=== PATIENT | male | born 1960 | race Caucasian/White ===

== ENCOUNTER 2018-11-03 15:02 | Inpatient (IN) | payer BC ==
[~2018-11-03] VITALS: Ht 170.2 cm; Wt 88.1 kg
[2018-11-03 15:25] VITALS: BP 131/96
--- NOTE | 2018-11-03 15:29 | NUR ---
VSS, AMBULATED TO LOBBY
--- NOTE | 2018-11-03 18:26 | NUR ---
patient ambulated to bed #7
--- NOTE | 2018-11-03 18:30 | NUR ---
PATIENT PRESENTS TO THE ED WITH C/O ELEVATED BLOOD PRESSURE. PER PATIENT HE WAS SEEN AT A CLINIC LAST SUNDAY AND HIS SYSTOLIC BP WAS IN THE 200's. PATIENT STATES THAT HE FELT DIZZY AND VOMITED. PATIENT REPORTS THAT HE WAS GIVEN BENICAR, ASPIRIN, ZOFRAN AND OMEPRAZOLE ON HIS VISIT TO THE CLINIC ON SUNDAY. PT DENIES TAKING MEDICATIONS AT HOME. NO C/O PAIN AT THIS TIME. BP 136/86 AT HIS TIME. NO S/S OF DISTRESS. PATIENT ON MONITORING. BED LOWERED WITH SIDE RAILS UP. WILL CONTINUE TO MONITOR
--- NOTE | 2018-11-03 19:13 | NUR ---
ASSUMED CARE OF PT FROM ANÍBAL VINSON
--- NOTE | 2018-11-03 19:20 | NUR ---
DR. CARCAMO IN THE UNIT. UPDATED BY AM NURSE REGARDING PT. CONDITION. NO ORDERS MADE AT THIS TIME. Addendum: 11/04/18 at 0415 by Sari Ríos RN WRONG PATIENT
[2018-11-03] MEDS ORDERED: DILTIAZEM 25 MG/5 ML VIAL IVP ONE ×3 (20:20→21:08)
[2018-11-03 20:30] LABS: BASOPHILS # (AUTO) 0.1 K/uL (0.00-0.22); BASOPHILS % (AUTO) 0.6 % (0.0-2.0); EOSINOPHILS # (AUTO) 0.1 K/uL (0-0.4); EOSINOPHILS % (AUTO) 1.2 % (0.0-4.0); HEMOGLOBIN 15.2 g/dL (12.0-18.0); LYMPHOCYTES # (AUTO) 3.3 K/uL (2.0-11.5); LYMPHOCYTES % (AUTO) 36.5 % (20.5-51.1); MEAN CORPUSCULAR HEMOGLOBIN 30 pg (27-31); MEAN CORPUSCULAR HGB CONC 32 g/dL (33-37); MEAN CORPUSCULAR VOLUME 92.3 fL (80-94); MONOCYTES # (AUTO) 0.8 K/uL (0.8-1.0); MONOCYTES % (AUTO) 9.2 % (1.7-9.3); NEUTROPHILS # (AUTO) 4.8 K/uL (1.8-7.7); NEUTROPHILS % (AUTO) 52.5 % (42.2-75.2); PLATELET COUNT (AUTO) 209 K/uL (140-450); RED BLOOD CELL COUNT(AUTO) 5.09 MIL/uL (4.20-6.10); RED CELL DISTRIBUTION WIDTH 13.4 % (11.6-13.7); WHITE BLOOD COUNT (AUTO) 9.1 K/uL (4.8-10.8)
[2018-11-03 20:41] LABS: ANION GAP 8.8 (8-16); CARBON DIOXIDE 33.8 mmol/L (21-32); CREATININE 0.9 mg/dL (0.7-1.3); POTASSIUM 3.6 mmol/L (3.5-5.1)
[2018-11-03 20:50] LABS: ALBUMIN 3.9 g/dL (3.4-5.0); TOTAL BILIRUBIN 0.5 mg/dL (0.0-1.0)
[2018-11-03] MEDS ORDERED: DILTIAZEM 125 MG in DEXTROSE 5% 100 ML IV ONE (20:50)
[2018-11-03] MEDS ORDERED: DILTIAZEM 125 MG/25 ML VIAL IV ONE (21:00)
[2018-11-03] MEDS ORDERED: ACETAMINOPHEN 325 MG TAB PO PRN (21:15)
[2018-11-03] MEDS ORDERED: LORazepam 2 MG/ML VIAL IM/IVP PRN (21:15)
[2018-11-03] MEDS ORDERED: ZOLPIDEM 5 MG TAB PO PRN (21:15)
[2018-11-03] MEDS ORDERED: DOCUSATE SODIUM 100 MG GELCAP PO PRN (21:15)
[2018-11-03] MEDS ORDERED: ONDANSETRON 4 MG/2 ML VIAL IM/IVP PRN (21:15)
[2018-11-03] MEDS ORDERED: HYDROcodone/APAP 5/325 MG 1 TAB TAB PO PRN (21:15)
[2018-11-03] MEDS ORDERED: MORPHINE SULFATE 2 MG/ML SYR IVP PRN (21:15)
[2018-11-03] MEDS ORDERED: NACL 0.9% 1,000 ML IV ONE (21:20)
--- NOTE | 2018-11-03 21:20 | NUR ---
BP DECREASED TO 86/55. ER MD ALLEN NOTIFED. ORDER FOR 1L BOLUS RECIEVED. CARDIZEM GTT DECREASED TO 5MG/HR.
--- NOTE | 2018-11-03 21:30 | NUR ---
PT HR DECREASED TO MID 40S LOW 50S. ER MD FRANKLIN AWARE. RECIEVED ORDERS TO STOP CARDIZEM GTT.
[2018-11-03 21:38] LABS: PROTHROMBIN TIME 10.4 secs (10.8-13.4)
--- NOTE | 2018-11-03 21:40 | NUR ---
PT PLACED INTO [place] POSISTION TO INCREASE BP. CARDIZEM DRIP STOPPED. HR MOVING TO LOW 60S. BP AT 99/60.
[2018-11-03 21:46] LABS: MAGNESIUM 1.8 mg/dL (1.8-2.4); PHOSPHORUS 3.2 mg/dL (2.5-4.9); THYROID STIMULATING HORMONE 3.12 uIU/mL (0.34-3.74)
--- NOTE | 2018-11-03 22:00 | NUR ---
HR AND BP IMPROVING. ER MD AWARE. CURRENT BP: 108/65
--- NOTE | 2018-11-03 22:10 | NUR ---
Patient will be admitted to care of DR NORRIS. Admited to ICU. Will go to room ICU 05. Belongings list completed. Report to ANÍBAL DAILEY.
--- NOTE | 2018-11-03 22:12 | NUR ---
RECEIVED PATIENT FROM ER VIA GURNEY. AWAKE, ALERTED, ORIENTED X4. PT ABLE TO TRANSFER TO BED WITH MINIMAL ASSISTANCE. ATTACHED TO CRUSHER SCREEN REPAIRER AND PULSE OXIMETER. IV ACCESS AT RIGHT AC 20G SALINE LOCK, RIGHT HAND 22G, SALINE LOCK, PATENT, INTACT. AFIB ON MONITOR. PT CAN ARTICULATE WORDS PROPERLY, NO SLURRING OF SPEECH NOTED. PERRLA. ABLE TO MOVE ALL EXTREMITIES WITH NO LIMITATION. SKIN INTACT. ABLE TO VOID FREELY. PT FOLLOWS COMMANDS. CAN VERBALIZED NEEDS. BED IN LOW POSITION, SAFETY MEASURE ENSURE. BED ALARM WITHIN REACH. WILL CONTINUE TO MONITOR.
[2018-11-03 22:19] VITALS: BP 168/93
[2018-11-03] MEDS: NACL 0.9% 1,000 ML IV SCH (22:43)
--- NOTE | 2018-11-03 23:00 | NUR ---
DR. JOLEEN MUNOZ AT BEDSIDE TALKING TO THE PATIENT AND THE .
--- NOTE | 2018-11-03 23:30 | NUR ---
VOIDED FREELY, URINE SPECIMEN SENT TO LAB,MRSA SPECIMEN SENT TO LAB. MITCHEL GUERRA PROVIDED SANDWICH.
[2018-11-03 23:57] LABS: APPEARANCE,URINE CLEAR (CLEAR); BILIRUBIN,URINE NEGATIVE (NEGATIVE); BLOOD, URINE TRACE-L (NEGATIVE); COLOR,URINE YELLOW (YELLOW); LEUKOCYTE ESTERASE ,URINE NEGATIVE (NEGATIVE); NITRITE, URINE NEGATIVE (NEGATIVE); UGLUCOSE NEGATIVE (NEGATIVE)
[2018-11-04] VITALS (12 sets, daily range): BP systolic 90–130; BP diastolic 34–75
--- NOTE | 2018-11-04 | NUR ---
SCDS IN PLACE.
[2018-11-04 00:04] LABS: BARBITURATE, URINE NEG. ng/ml (NEG <=200); BENZODIAZEPINE, URINE NEG. ng/mL (NEG <=200); CANNABINOID, URINE NEG. ng/mL (NEG <=50); COCAINE, URINE NEG. ng/mL (NEG <=300); OPIATE, URINE NEG. ng/mL (NEG <=2000); PHENCYCLIDINE SCREEN,URINE NEG. ng/mL (NEG <=25)
[2018-11-04 00:09] LABS: RBC,URINE 0-5 /HPF (0-5); WBC,URINE 0-5 /HPF (0-5)
[2018-11-04] MEDS ORDERED: OMEP20TC12 PO (00:09)
[2018-11-04] MEDS ORDERED: OLME5TAB PO (00:09)
--- NOTE | 2018-11-04 00:50 | NUR ---
DR. FLORES AT BEDSIDE TALKING TO PATIENT AND .
[2018-11-04] MEDS ORDERED: ENOXAPARIN 80 MG/0.8 ML SYR SUBQ SCH (01:00)
[2018-11-04] MEDS ORDERED: PNEUMOCOCCAL VACCINE 23 MCG/0.5 ML VIAL IMVAC SCH (01:40)
[2018-11-04] MEDS ORDERED: INFLUENZA VIRUS VACCINE QUAD 0.5 ML SYR IMVAC PRN (01:40)
[2018-11-04] MEDS ORDERED: KCL 20 MEQ/WATER INJ PREMIX 200 ML IV ONE (02:00)
[2018-11-04] MEDS ORDERED: POTASSIUM CHLORIDE 40 MEQ, LIDOCAINE MPF 1% - 5 mL VIAL 25 MG in NACL 0.9% 250 ML IV SCH (02:00)
[2018-11-04] MEDS ORDERED: POTASSIUM CHLORIDE 40 MEQ, LIDOCAINE MPF 1% - 5 mL VIAL 25 MG in NACL 0.9% 250 ML IV ONE (02:00)
[2018-11-04] MEDS ORDERED: MAG SULF 2000 MG/WATER PREMIX 50 ML IV ONE (02:00)
--- NOTE | 2018-11-04 03:53 | NUR ---
PT ASLEEP AT THIS TIME. WILL CONTINUE TO MONITOR.
--- NOTE | 2018-11-04 04:00 | NUR ---
PT SLEEPING, AROUSABLE TO VERBAL STIMULI, NO DISTRESS NOTED. WILL CONTINUE TO MONITOR.
[2018-11-04 06:28] LABS: BASOPHILS % (AUTO) 0.3 % (0.0-2.0); EOSINOPHILS # (AUTO) 0.1 K/uL (0-0.4); EOSINOPHILS % (AUTO) 1.3 % (0.0-4.0); HEMATOCRIT 44.5 % (36-52); HEMOGLOBIN 14.4 g/dL (12.0-18.0); LYMPHOCYTES % (AUTO) 33.7 % (20.5-51.1); MEAN CORPUSCULAR HEMOGLOBIN 30 pg (27-31); MEAN CORPUSCULAR HGB CONC 32 g/dL (33-37); MEAN CORPUSCULAR VOLUME 92.9 fL (80-94); MONOCYTES # (AUTO) 0.9 K/uL (0.8-1.0); MONOCYTES % (AUTO) 9.6 % (1.7-9.3); NEUTROPHILS # (AUTO) 4.9 K/uL (1.8-7.7); NEUTROPHILS % (AUTO) 55.1 % (42.2-75.2); PLATELET COUNT (AUTO) 205 K/uL (140-450); RED BLOOD CELL COUNT(AUTO) 4.79 MIL/uL (4.20-6.10); RED CELL DISTRIBUTION WIDTH 13.9 % (11.6-13.7); WHITE BLOOD COUNT (AUTO) 8.8 K/uL (4.8-10.8)
[2018-11-04 06:39] LABS: CHOL/HDL RATIO 3.6 (1-4.5)
[2018-11-04] MEDS: PANTOPRAZOLE 40 MG TABEC PO SCH (06:58)
--- NOTE | 2018-11-04 07:24 | NUR ---
REPORT GIVEN TO ANÍBAL MONTANO FOR CONTINUITY OF CARE.
--- NOTE | 2018-11-04 07:30 | NUR ---
RECEIVED BEDSIDE REPORT FROM HARVESTER OPERATOR NURSE. PT IS AAOX4. ABLE TO MAKE NEEDS KNOWN. AFEBRILE. NO C/O PAIN. A. FIB ON MONITOR. PT IS ON ROOM AIR, O2 SAT 100%. NO SOB OR RESP DISTRESS NOTED. LUNGS SOUND CLEAR BILATERALLY. ON CARDIAC DIET. BREAKFAST PROVIDED. ABLE TO EAT INDEPENDENTLY. PERIPHERAL IV G20 TO RIGHT ANTECUBITAL AND SALINE LOCK G22 TO RIGHT HAND ASYMPTOMATIC, PATENT AND INTACT, PT RECEIVING NS AT 100ML/HR. PT IS CONTINENT B&B. SKIN IS INTACT, DRY AND WARM TO TOUCH. SCDS IN PLACE FOR VTE PROPHYLAXIS. HOB ELEVATED 30 DEGREES, BED IN LOW POSITION. CALL LIGHT WITHIN REACH. NEEDS WELL ATTENDED. SAFETY PRECAUTIONS IN PLACE. WILL CONTINUE TO MONITOR.
--- NOTE | 2018-11-04 07:47 | NUR ---
A. FIB CONVERTED TO NORMAL SINUS RHYTHM.
--- NOTE | 2018-11-04 07:57 | NUR ---
PT SEEN AND EXAMINED BY DR. SMITH. WILL FOLLOW UP ON ORDERS.
[2018-11-04] MEDS: NACL 0.9% 1,000 ML IV SCH ×2 (08:01→16:38)
[2018-11-04 08:06] LABS: ANION GAP 9.4 (8-16); CARBON DIOXIDE 30.5 mmol/L (21-32); CREATININE 0.9 mg/dL (0.7-1.3); POTASSIUM 3.9 mmol/L (3.5-5.1)
[2018-11-04] MEDS ORDERED: PROBIOTIC SCREEN 1 EA MISC MC PRN (08:25)
[2018-11-04] MEDS: ENOXAPARIN 80 MG/0.8 ML SYR SUBQ SCH ×2 (08:26→21:34)
--- NOTE | 2018-11-04 08:37 | NUR ---
MEDICATIONS ADMINISTERED ORDERED. PT TOLERATED WELL.
--- NOTE | 2018-11-04 08:38 | NUR ---
PATIENT HAS BEEN SCREENED AND CATEGORIZED MODERATE NUTRITION RISK. PATIENT WILL BE SEEN WITHIN 3-5 DAYS OF ADMISSION. 11/06/18[address]
--- NOTE | 2018-11-04 08:40 | NUR ---
DR. NORRIS AND RESIDENT GROUP IN TO SEE PT. WILL FOLLOW UP ON ORDERS.
--- NOTE | 2018-11-04 08:50 | NUR ---
BP 91/65, HR 61. CARDIZEM HELD. DR. DIEZ MADE AWARE.
[2018-11-04] MEDS ORDERED: DILTIAZEM 30 MG TAB PO SCH (09:00)
[2018-11-04] MEDS ORDERED: NACL 0.9% 250 ML IV SCH (09:15)
--- NOTE | 2018-11-04 12:20 | NUR ---
PT HAD 100% OF LUNCH. VSS. NO C/O PAIN OR DISCOMFORT AT THIS TIME.
--- NOTE | 2018-11-04 12:55 | NUR ---
PT SEEN AND EXAMINED BY DR. JAYASHREE Leon WILL FOLLOW UP ON ORDERS.
--- NOTE | 2018-11-04 14:20 | NUR ---
FAMILY AT BEDSIDE. HR 60, BP 118/72. NO S/SX OF DISTRESS NOTED. SAFETY PRECAUTIONS IN PLACE. WILL CONTINUE TO MONITOR.
[2018-11-04 16:21] LABS: ALBUMIN 3.2 g/dL (3.4-5.0); ANION GAP 10.4 (8-16); CARBON DIOXIDE 27.8 mmol/L (21-32); CREATININE 0.9 mg/dL (0.7-1.3); POTASSIUM 4.2 mmol/L (3.5-5.1); TOTAL BILIRUBIN 0.7 mg/dL (0.0-1.0)
--- NOTE | 2018-11-04 17:55 | NUR ---
DINNER PROVIDED. PT STATED HE WANTED TO REST AT THIS TIME. AT BEDSIDE. NO ACUTE DISTRESS NOTED AT THIS TIME.
--- NOTE | 2018-11-04 18:05 | NUR ---
PT HAD EPISODE OF BRADYCARDIA- HR 45. RESIDENT PHYSICIAN DR. SMALL MADE AWARE.
--- NOTE | 2018-11-04 18:13 | NUR ---
DR. SMALL IN TO SEE AND EXAMINE PT. UPDATES GIVEN ON PT'S CONDITION. WILL FOLLOW UP ON ORDERS.
--- NOTE | 2018-11-04 19:29 | NUR ---
REPORT GIVEN TO DBAS RN FOR CONTINUITY OF CARE. PT IS IN STABLE CONDITION.
--- NOTE | 2018-11-04 19:30 | NUR ---
RECEIVED BEDSIDE REPORT FROM MORNING SHIFT NURSE. PATIENT AAOX4 WITH AT BEDSIDE. NO FEVER, TEMP 98.0 NOTED. NO C/O PAIN AND DISCOMFORT. SR ON MONITOR WITH HR 50-60'S. BILATERAL LUNGS SOUND CLEAR NOTED, ON ROOM AIR, O2 SAT 98%. NO SOB OR RESP DISTRESS NOTED. PERIPHERAL IV G20 TO RIGHT AC AND SALINE LOCK G22 TO RIGHT HAND PATENT AND INTACT, RUNNING NS AT 130ML/HR. SKIN IS INTACT, DRY AND WARM TO TOUCH. SCD'S IN PLACE. HOB ELEVATED 30 DEGREES, BED IN LOW POSITION. CALL LIGHT WITHIN REACH. WILL CONTINUE TO MONITOR.
[2018-11-04] MEDS: SOTALOL 80 MG TAB PO SCH (21:00)
--- NOTE | 2018-11-04 21:00 | NUR ---
PATIENT REQUESTED BODY WASH, PROVIDED BED BATH, PATIENT TOLERATED WELL. SB TO SR ON THE MONITOR WITH HR 50-60'S. DENIES PAIN OR DISCOMFORT. NO ACUTE DISTRESS NOTED. WILL CONTINUE TO MONITOR.
--- NOTE | 2018-11-04 21:40 | NUR ---
HOLD SOTALOL 80MG PO MEDICATION PER PARAMETER, HR 55 NOTED.
--- NOTE | 2018-11-04 23:00 | NUR ---
NOTIFIED TO ABOUT HOLDING FOR SOTALOL PER PARAMETER HR 55 AND SEVERAL EPISODES OF BRADYCARDIAC WITH HR 40'S.
[2018-11-05] VITALS (8 sets, daily range): BP systolic 112–129; BP diastolic 58–77
[2018-11-05] MEDS: NACL 0.9% 1,000 ML IV SCH ×3 (00:31→15:44)
--- NOTE | 2018-11-05 01:00 | NUR ---
PATIENT IN ASLEEP, AROUSABLE TO VOICE. NO ACUTE DISTRESS NOTED. DENIES PAIN. SB ON THE MONITOR WITH HR 50'S. WILL CONTINUE TO MONITOR.
--- NOTE | 2018-11-05 03:00 | NUR ---
NO ACUTE DISTRESS. DENIES PAIN. PATIENT IN ASLEEP. AT BEDSIDE. WILL CONTINUE TO MONITOR.
--- NOTE | 2018-11-05 05:10 | NUR ---
PATIENT REQUESTED SOME JUICE, PROVIDED. NO ACUTE DISTRESS NOTED. SB ON THE MONITOR. WILL CONTINUE TO MONITOR.
[2018-11-05] MEDS: PANTOPRAZOLE 40 MG TABEC PO SCH (06:20)
[2018-11-05 06:28] LABS: BASOPHILS % (AUTO) 0.3 % (0.0-2.0); EOSINOPHILS # (AUTO) 0.2 K/uL (0-0.4); HEMATOCRIT 40.6 % (36-52); HEMOGLOBIN 13.1 g/dL (12.0-18.0); LYMPHOCYTES # (AUTO) 2.8 K/uL (2.0-11.5); LYMPHOCYTES % (AUTO) 33.8 % (20.5-51.1); MEAN CORPUSCULAR HEMOGLOBIN 30 pg (27-31); MEAN CORPUSCULAR HGB CONC 32 g/dL (33-37); MEAN CORPUSCULAR VOLUME 93.1 fL (80-94); MONOCYTES % (AUTO) 11.9 % (1.7-9.3); NEUTROPHILS # (AUTO) 4.2 K/uL (1.8-7.7); PLATELET COUNT (AUTO) 181 K/uL (140-450); RED BLOOD CELL COUNT(AUTO) 4.36 MIL/uL (4.20-6.10); RED CELL DISTRIBUTION WIDTH 13.9 % (11.6-13.7); WHITE BLOOD COUNT (AUTO) 8.1 K/uL (4.8-10.8)
--- NOTE | 2018-11-05 06:30 | NUR ---
DR. DHEZ AT BEDSIDE TO CHECK THE PATIENT. WILL FOLLOW ORDERS.
[2018-11-05 06:51] LABS: ANION GAP 8.6 (8-16); CARBON DIOXIDE 28.1 mmol/L (21-32); CREATININE 0.7 mg/dL (0.7-1.3); POTASSIUM 3.7 mmol/L (3.5-5.1)
[2018-11-05 06:59] LABS: MAGNESIUM 1.7 mg/dL (1.8-2.4); PHOSPHORUS 3.2 mg/dL (2.5-4.9)
--- NOTE | 2018-11-05 07:25 | NUR ---
RECEIVED BEDSIDE REPORT FROM FURNITURE SANDER RN. PT IS ASLEEP. AT BEDSIDE. EASILY AROUSABLE, AAOX4, ABLE TO MAKE NEEDS KNOWN. DENIES PAIN. SINUS BRADYCARDIA ON MONITOR. HR IN 50'S. PT IS ON ROOM AIR, O2 SAT 98%. LUNGS SOUND CLEAR BILATERALLY. NO SIGNS OF RESPIRATORY DISTRESS NOTED. PERIPHERAL IV G20 TO RIGHT ANTECUBITAL PATENT AND INTACT, RECEIVING NS AT 130ML/HR. SALINE LOCK G22 TO RIGHT HAND INTACT, PATENT W/ GOOD BLOOD RETURN. ABD SOFT, NONTENDED W/ ACTIVE BOWEL SOUNDS. SKIN INTACT, DRY AND WARM TO TOUCH. SCDS IN PLACE FOR VTE PROPHYLAXIS. AFEBRILE. NO DISTRESS NOTED AT THIS TIME. HOB 30 DEGREES, BED IN LOW POSITION. CALL LIGHT WITHIN REACH. WILL CONTINUE TO MONITOR.
[2018-11-05] MEDS: ENOXAPARIN 80 MG/0.8 ML SYR SUBQ SCH (08:11)
[2018-11-05] MEDS ORDERED: MAGNESIUM OXIDE 400 MG TAB PO SCH (08:35)
--- NOTE | 2018-11-05 08:35 | NUR ---
DR. NORRIS AND RESIDENT GROUP IN TO SEE PT. WILL FOLLOW UP ON ORDERS.
--- NOTE | 2018-11-05 08:40 | NUR ---
MEDICATIONS ADMINISTERED ORDERED. HR IN 50'S. BETAPACE HELD. DR. DIEZ MADE AWARE.
[2018-11-05] MEDS ORDERED: ASPIRIN 325 MG TABEC PO SCH (09:00)
[2018-11-05] MEDS: SOTALOL 80 MG TAB PO SCH (09:00)
[2018-11-05] MEDS ORDERED: ASPI-1206 PO (10:37)
[2018-11-05] MEDS ORDERED: POTASSIUM CHLORIDE 10 MEQ TABER PO SCH (11:00)
--- NOTE | 2018-11-05 12:03 | NUR ---
NO DISTRESS OR DISCOMFORT NOTED AT THIS TIME. PT IS AFEBRILE. BRADYCARDIA NOTED, HR IN 50'S. BP 123/67. AND VISITORS AT BEDSIDE. SAFETY PRECAUTIONS IN PLACE. WILL CONTINUE TO MONITOR.
--- NOTE | 2018-11-05 12:40 | NUR ---
PT ATE 100% OF LUNCH. AT BEDSIDE.
[2018-11-05] MEDS ORDERED: SOTA80TA PO (15:17)
--- NOTE | 2018-11-05 15:42 | NUR ---
VITAL SIGNS STABLE. PT WATCHING TV. FAMILY AT BEDSIDE. NO SIGNS OF DISTRESS NOTED.
--- NOTE | 2018-11-05 16:02 | NUR ---
DR. DIEZ IN THE UNIT GIVING DISCHARGE INSTRUCTIONS TO PT AND .
--- NOTE | 2018-11-05 16:27 | NUR ---
PER JIMBO BORDEN TO DC PATIENT PER DR. BLANC.
--- NOTE | 2018-11-05 17:15 | NUR ---
PT DISCHARGED HOME ACCOMPANIED BY VIA PRIVATE VEHICLE. DISCHARGE INSTRUCTION/ EDUCATION GIVEN. FLU AND PNU VACCINES GIVEN BEFORE DISCHARGE. PT IS STABLE. NO S/SX OF DISTRESS NOTED UPON DISCHARGE.
== END 2018-11-05 17:15 | disposition home or self-care (01) | DRG 309 ==
LOC: EDBD 15:02 → MED 15:02 → MIC 21:14
PROVIDERS: ADMIT General Practice; ATTEND General Practice
PROC: 3E02340 Introduction of Influenza Vaccine into Muscle, Percutaneous Approach (ICD-10-PCS; principal; 2018-11-04)
PROC: 3E0234Z Introduction of Serum, Toxoid and Vaccine into Muscle, Percutaneous Approach (ICD-10-PCS; 2018-11-04)
DX: I48.0 Paroxysmal atrial fibrillation (principal); E44.0 Moderate protein-calorie malnutrition; I10 Essential (primary) hypertension; K21.9 Gastro-esophageal reflux disease without esophagitis; E66.9 Obesity, unspecified; E78.5 Hyperlipidemia, unspecified; N32.81 Overactive bladder; E83.42 Hypomagnesemia; Z68.30 Body mass index [BMI] 30.0-30.9, adult; Z71.3 Dietary counseling and surveillance; Z83.3 Family history of diabetes mellitus; Z82.49 Family history of ischemic heart disease and other diseases of the circulatory system; Z23 Encounter for immunization
CPT/HCPCS: 36415; 71045; 80048; 80053; 80305; 81001; 82150; 83036; 83690; 83735; 83880; 84100; 84443; 84484; 85025; 85379; 85610; 85730; 87081; 90732; 93005; 96365; 96375; 99285; J1650; J2001; J3475; J3480; J3490; J7030; J7060; Q0092